=== PATIENT | female | born 1990 | race Caucasian/White ===

== ENCOUNTER 2017-07-21 19:44 | Emergency (ER) | payer OTHER ==
[~2017-07-21] VITALS: Ht 165.1 cm; Wt 72.6 kg
[~2017-07-21 19:44] MED LIST: AMOXICILLIN500 M2 PO; AMOXIL 875 MG875 MG PO; AUGMENTIN 875-1 EACH PO; CYCLOBENZAPRINE10 M1 PO; DILAUDID2 M1 PO; FERROUS SULFAT325 M1 PO; IBUPROFEN800 M1 PO; IBUPROFEN800 MG PO; MEDROL4 M2 PO; MIRENA1 EACH; MOBIC15 M1 PO; PERCOCET 5-3251 EACH PO; PRENATAL VITAMI1 TAB PO; VALIUM5 M2 PO; VICODIN 5-3001 EACH PO; ZOFRAN ODT4 M1 SL; ZOFRAN ODT4 MG PO
[2017-07-21 19:52] VITALS: BP 114/79
--- NOTE | 2017-07-21 20:07 | ED HEAD/FACIAL INJ COMPLAINT ---
History of Present Illness General Chief Complaint: General Adult Stated Complaint: "HIT FRONT OF FACE ON CAR DOOR" Source: patient, old records Exam Limitations: no limitations Vital Signs & Intake/Output Vital Signs & Intake/Output Vital Signs Date Time Temp Pulse Resp B/P B/P Pulse O2 O2 Flow FiO2 Mean Ox Delivery Rate 07/21 2008 Room Air 07/22 1951 97.9 98 18 114/79 99 Room Air Allergies Coded Allergies: NO KNOWN ALLERGIES (03/06/14) Reconcile Medications Cyclobenzaprine HCl 10 MG TABLET 1 TAB PO QPM PRN MUSCLE RELAXOR Hydrocodone/Acetaminophen (Vicodin 5-300 MG Tablet) 5 MG-300 MG TABLET 1 TAB PO BID PRN PAIN DO NOT TAKE THIS MEDICATION WHILE OPERATING MOTOR VEHICLES Meloxicam (Mobic) 15 MG TABLET 1 TAB PO DAILY PRN PAIN Methylprednisolone. (Medrol) 4 MG TAB.DS.PK 1 DP PO AD INFLAMMATION 6 on day 1 then reduce by one tablet daily until gone Triage Note: RECEIVED 27 YO FEMALE PRESENTS TO THE ED WITH C/O RIGHT FACIAL PAIN AND SWELLING AFTER ACCIDENTALLY SLAMMING CAR DOOR ON HER FACE [place] [employer]. PT DENIES LOC BUT REPORTS VOMITED X ONE AFTER INCIDENT. NO ACTIVE BLEEDING NOTED. Triage Nurses Notes Reviewed? yes Onset: Abrupt Severity: mild Severity Numbers: 5 Location: frontal Loss of Consciousness: no loss of consciousness Associated Symptoms: denies : No Patient currently breastfeeds: No HPI: 27-year-old female presents to ER for evaluation complaining of right-sided facial pain and abrasion status post accidentally closing the car door on her head as she was in the vehicle.. She states there is no loss of consciousness she denies any nausea vomiting blurry vision. There is no epistaxis no tinnitus she is complained of right-sided headache. No epistaxis dental trauma she is not taken anything for her symptoms or modifying factors or associated symptoms otherwise. (Henri Garcia) Past History Travel History Traveled to [place] past 21 day No Medical History Any Pertinent Medical History? none Neurological: NONE EENT: NONE Cardiovascular: NONE Respiratory: NONE Gastrointestinal: NONE Hepatic: NONE Renal: NONE Musculoskeletal: NONE Psychiatric: NONE Endocrine: NONE Blood Disorders: NONE Cancer(s): NONE OPERATIONS LEADER/Reproductive: NONE Surgical History Surgical History: non-contributory, N Psychosocial History What is your primary language Setswana Tobacco Use: Quit <30 days ago Family History Hx Contributory? No (Henri Garcia) Review of Systems Review of Systems Constitutional: Reports: see HPI. All Other Systems: Reviewed and Negative Comments Review of systems: See HPI, All other systems negative. Constitutional, no chills no fever, HEENT: no sore throat no congestion Cardiovascular: No chest pain Skin: no rashes, no change in skin Respiratory: No dyspnea no cough no sputum GI: No nausea no vomiting, Muscle skeletal: No joint pain, no back pain, no neck pain, Neurologic: headache Heme/endocrine: No bruising (Henri Garcia) Physical Exam Physical Exam General Appearance: well developed/nourished, no apparent distress, alert Cranial Nerves: normal hearing, normal speech, PERRL Comments: Well-developed well-nourished patient in no apparent distress. Head/Face: Superficial abrasion noted in the right eyebrow, no active bleeding the scalp is otherwise atraumatic no hematoma no swelling nontender no maxillary /frontal sinus tenderness, no facial swelling Eyes: PERRL, EOMI, no conjunctival injection. No nystagmus no hyphema Ear:External auditory canal and Tympanic membranes clear, no erythema, no hemotympanum Nose: atraumatic.Normal inspection: No bleeding, no septal hematoma Throat: Moist mucous membranes.Pharynx normal. Neck: Supple, FROM Back: FROM Respiratory: No respiratory distress. Patient speaking in full complete sentences. Breath sounds clear to auscultation bilaterally: NO W/R/R Extremities: full range of motion Neuro: awake, alert, and oriented to person, place and time. There were no obvious focal neurologic abnormalities. Skin: Warm & dry;No appreciable rash on exposed skin Psych: Mood affect normal, normal memory normal judgment. (Henri Garcia) Progress Differential Diagnosis: facial fracture, globe injury, ICH, skull fracture Plan of Care: I discussed with the patient at length plan of care. I do not believe she requires any imaging which is in agreement with I had an extensive conversation regarding need for close follow up with their primary care physician this week as well as return precautions. I answered all of their questions, they feel comfortable with the plan and follow-up care. (Henri Garcia) Departure Departure Time of Disposition: 2005 Disposition: HOME OR SELF CARE Condition: Stable Clinical Impression Primary Impression: Minor head injury Secondary Impressions: Facial abrasion Referrals: Patient Has No Primary Care Dr (PCP/Family) Additional Instructions: rest, ice, tylenol or motrin for pain. follow up with your pmd, return with any concerns Departure Forms: Customer Survey General Discharge Information (Kisha ETIENNE,Henri) PA/DOCUMENT ADVISOR Co-Sign Statement Statement: ED Attending supervision documentation- [] I saw and evaluated the patient. I have also reviewed all the pertinent lab results and diagnostic results. I agree with the findings and the plan of care as documented in the PA's/DOCUMENT ADVISOR's documentation. [X] I have reviewed the ED Record and agree with the PA's/DOCUMENT ADVISOR's documentation. [] Additions or exceptions (if any) to the PAs/DOCUMENT ADVISOR's note and plan are summarized below: [] (Karlene PALOMARES,Koko Addison)
== END 2017-07-21 20:12 ==
LOC: ERH 19:44
DX: S09.90XA Unspecified injury of head, initial encounter (principal); S00.81XA Abrasion of other part of head, initial encounter; W22.8XXA Striking against or struck by other objects, initial encounter; Y92.524 Gas station as the place of occurrence of the external cause; Y93.9 Activity, unspecified